=== PATIENT | male | born 1980 | race Caucasian/White ===

== ENCOUNTER 2016-11-07 12:39 | Observation (INO) ==
[2016-11-07] MEDS ORDERED: SODIUM BICARBONATE 8.4% 100 MEQ in STERILE WATER INJ. 1,000 ML IV SCH (12:59)
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
[2016-11-07 13:12] LABS: MANUAL DIFF NEEDED? NO
[2016-11-07 13:18] LABS: BASO% 0.2 % (0.0-0.8); EOS# 0.11 X1000 (0.0-0.7); EOS% 1.4 % (0.0-10.0); HEMOGLOBIN 14.6 g/dL (14.0-18.0); LYMPH# 2.08 X1000 (1.2-3.4); LYMPH% 25.7 % (20.5-51.1); MCH 30.2 PG (27-31); MCHC 34.8 g/dL (33-37); MCV 86.8 FL (81-99); MONO# 0.73 X1000 (0.11-0.59); MPV 9.2 FL (7.4-10.4); NEUT% 63.7 % (42.2-75.2); PLT 280 X1000 (130-400); RBC 4.84 XMIL (4.7-6.1)
[2016-11-07 13:31] LABS: ALBUMIN 4.3 g/dL (3.5-5.0); MAGNESIUM 2.1 mg/dL (1.5-2.7); POTASSIUM 3.9 mmol/L (3.5-5.1); TOTAL BILIRUBIN 0.32 mg/dL (0.20-1.00); TOTAL PROTEIN 6.6 g/dL (6.3-8.3)
[2016-11-07] MEDS ORDERED: DILAUDID IV ONE (15:41)
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
[2016-11-07 17:34] LABS: AGAP 12; BUN 12 mg/dL (8-22); CALCIUM 8.9 mg/dL (8.8-10.2); CHLORIDE 101 mmol/L (98-107); COSMO 283; POTASSIUM 3.6 mmol/L (3.5-5.1); SODIUM 142 mmol/L (136-145); TCO2 29 mmol/L (25-35)
[2016-11-07 18:09] VITALS: BP 126/82
== END 2016-11-07 18:17 | disposition home or self-care (01) ==
LOC: ED 12:39 → INTOOBSV 15:37 → P.MEDSURG 15:37
PROVIDERS: ATTEND Internal Medicine